=== PATIENT | female | born 1955 ===

== ENCOUNTER 2018-06-02 05:39 | Outpatient (CLI) | payer OTHER ==
[~2018-06-02] VITALS: Ht 152.4 cm; Wt 54.4 kg
[2018-06-02] MEDS ORDERED: ROSU10TA PO (15:47)
[2018-06-02] MEDS ORDERED: OMEP20TA33 PO (15:47)
== END 2018-06-02 15:48 | disposition home or self-care (01) ==
LOC: PREOP 05:39
PROVIDERS: ATTEND Surgery
DX: Z01.818 Encounter for other preprocedural examination (principal)